=== PATIENT | female | born 1995 | race Two or more races ===

== ENCOUNTER 2021-09-07 13:52 | Emergency (ER) | payer MEDICAID ==
[~2021-09-07] VITALS: Ht 160 cm; Wt 93.6 kg
[2021-09-07 14:34] VITALS: BP 128/73
[2021-09-07] MEDS ORDERED: LIDOCAINE 1% HCL (LOCAL ANESTH.) INJ 20ML MDV ONE (14:52)
[2021-09-07] MEDS ORDERED: IBUP800T27 PO (15:13)
[2021-09-07] MEDS ORDERED: SULF400T11 PO (15:13)
[2021-09-07] MEDS ORDERED: LIDOCAINE 1% HCL (LOCAL ANESTH.) INJ 20ML MDV IJ ONE (15:15)
== END 2021-09-07 15:44 | disposition home or self-care (01) ==
LOC: ER 13:52
DX: N75.1 Abscess of Bartholin's gland (principal); J45.909 Unspecified asthma, uncomplicated; Z90.89 Acquired absence of other organs; Z79.1 Long term (current) use of non-steroidal anti-inflammatories (NSAID); Z79.2 Long term (current) use of antibiotics; Z88.8 Allergy status to other drugs, medicaments and biological substances
CPT/HCPCS: 56420; 87070; 99284; J2001; 87205

== ENCOUNTER 2021-09-09 16:33 | Emergency (ER) | payer MEDICAID ==
[~2021-09-09] VITALS: Ht 157.5 cm; Wt 206.0 kg
[~2021-09-09 16:33] MED LIST: IBUP800T27 PO; SULF400T11 PO
[2021-09-09 18:34] VITALS: BP 131/79
== END 2021-09-09 19:01 | disposition home or self-care (01) ==
LOC: ER 16:33
DX: Z48.817 Encounter for surgical aftercare following surgery on the skin and subcutaneous tissue (principal)

== ENCOUNTER 2022-05-20 05:10 | Emergency (ER) | payer MEDICAID ==
[~2022-05-20] VITALS: Ht 157.5 cm; Wt 185.0 kg
[2022-05-20 05:10] VITALS: BP 122/81
== END 2022-05-20 06:45 | disposition left against medical advice (07) ==
LOC: ER 05:10
DX: R11.2 Nausea with vomiting, unspecified (principal); R19.7 Diarrhea, unspecified; R10.10 Upper abdominal pain, unspecified; N93.8 Other specified abnormal uterine and vaginal bleeding; Z53.21 Procedure and treatment not carried out due to patient leaving prior to being seen by health care provider